=== PATIENT | female | born 1970 | race Caucasian/White ===

== ENCOUNTER 2016-09-21 23:48 | Emergency (ER) | payer OTHER ==
[~2016-09-21] VITALS: Ht 170.2 cm; Wt 103.7 kg
[~2016-09-21 23:48] MED LIST: ADDERALL XR 2020 MG PO; ADDERALL XR 3030 MG PO; CLONAZEPAM0.5 MG PO; DESYREL100 MG PO; FLUCONAZOLE150 MG PO; MOBIC7.5 MG PO; MOTRIN400 MG PO; TRAZODONE HCL100 MG PO; ULTRAM50 MG PO; ZOLPIDEM TARTRA10 MG PO
[2016-09-21 23:54] VITALS: BP 135/79
[2016-09-22] MEDS ORDERED: ULTRAM50 MG PO (02:13)
[2016-09-22] MEDS ORDERED: PERCOCET 5/31 TABLET PO (02:20)
== END 2016-09-22 02:34 | disposition home or self-care (01) ==
LOC: EME 23:48
DX: M77.31 Calcaneal spur, right foot (principal); M25.571 Pain in right ankle and joints of right foot; M79.89 Other specified soft tissue disorders
CPT/HCPCS: 73610; 73630; 93971; 99281; 99283

== ENCOUNTER 2018-01-05 05:24 | Inpatient (IN) | payer OTHER ==
[~2018-01-05] VITALS: Ht 172.7 cm; Wt 105.9 kg
[~2018-01-05 05:24] MED LIST changes: +PERCOCET 5/31 TABLET PO
[2018-01-05 06:28] LABS: HEMATOCRIT 34.5 % (36.0-46.0); HEMOGLOBIN 11.7 G/DL (11.9-15.5); MCH 29.3 PG (29.0-34.0); MCHC 33.9 G/DL (30.0-36.0); MCV 86.3 FL (83-99); PLATELET COUNT 216 K/uL (156-360); RBC DIS.WIDTH-CV 13.5 % (11.8-14.6); RBC DIS.WIDTH-SD 42.5 % (39-53); WHITE BLOOD COUNT 4.9 K/uL (4.1-10.2)
[2018-01-05 06:41] LABS: CHLORIDE 109 mEq/L (99-109); POTASSIUM 3.8 mEq/L (3.7-5.4); SODIUM 142 mEq/L (136-147)
[2018-01-05 06:43] LABS: GLUCOSE 116 mg/dL (70-99)
[2018-01-05 06:47] LABS: CREATININE 0.8 mg/dL (0.6-1.3); GFR ESTIMATE (CALCULATED) > 59 mL/min/; UREA NITROGEN (BUN) 12 mg/dL (9-23)
[2018-01-05 06:52] LABS: TROP-I INTERPRETATION NEGATIVE; TROPONIN-I 0.01 ng/mL (0.0-0.30)
[2018-01-05 07:13] LABS: ALBUMIN 4.2 G/DL (3.2-4.8); DIRECT BILIRUBIN 0.1 mg/dL (0.0-0.3); TOTAL BILIRUBIN 0.4 MG/DL (0.0-1.0)
[2018-01-05 07:18] LABS: ALKALINE PHOSPHATASE 75 IU/L (3-129); ALT (GPT) 12 IU/L (3-49); AST (GOT) 17 IU/L (2-34); LIPASE 15 U/L (1.0-51.0)
[2018-01-05 08:36] LABS: THYROTROPIN (TSH) 2.5 MIU/L (0.4-5.5)
[2018-01-05 08:40] LABS: TROP-I INTERPRETATION NEGATIVE; TROPONIN-I 0.04 ng/mL (0.0-0.30)
[2018-01-05] MEDS ORDERED: ADDERALL XR 3030 MG PO (09:22)
[2018-01-05] MEDS ORDERED: ALPRAZOLAM1 MG PO (09:23)
[2018-01-05 11:23] VITALS: BP 130/70
[2018-01-05 14:51] VITALS: BP 105/59
[2018-01-05 16:26] LABS: TROP-I INTERPRETATION POSITIVE; TROPONIN-I 1.04 ng/mL (0.0-0.30)
[2018-01-05 17:33] VITALS: BP 117/74
[2018-01-05 18:38] LABS: TROP-I INTERPRETATION POSITIVE; TROPONIN-I 1.97 ng/mL (0.0-0.30)
[2018-01-05 20:30] VITALS: BP 120/67
[2018-01-05 20:49] LABS: TROP-I INTERPRETATION POSITIVE; TROPONIN-I 2.55 ng/mL (0.0-0.30)
[2018-01-06 00:02] VITALS: BP 113/80
[2018-01-06 04:51] VITALS: BP 100/52
[2018-01-06 05:50] LABS: TROP-I INTERPRETATION POSITIVE; TROPONIN-I 4.12 ng/mL (0.0-0.30)
[2018-01-06 05:57] LABS: HEMATOCRIT 32.6 % (36.0-46.0); HEMOGLOBIN 10.6 G/DL (11.9-15.5); MCH 28.5 PG (29.0-34.0); MCHC 32.5 G/DL (30.0-36.0); MCV 87.6 FL (83-99); PLATELET COUNT 201 K/uL (156-360); RBC DIS.WIDTH-CV 13.5 % (11.8-14.6); RBC DIS.WIDTH-SD 43.3 % (39-53); RED BLOOD COUNT 3.72 M/uL (3.80-5.20); WHITE BLOOD COUNT 5.1 K/uL (4.1-10.2)
[2018-01-06 06:14] LABS: CHLORIDE 109 MEQ/L (99-109); CREATININE 0.6 MG/DL (0.6-1.3); GFR ESTIMATE (CALCULATED) > 59 mL/min/; GLUCOSE 99 mg/dL (70-99); POTASSIUM 3.7 MEQ/L (3.7-5.4); SODIUM 140 MEQ/L (136-147); UREA NITROGEN (BUN) 13 mg/dL (9-23)
[2018-01-06 07:51] VITALS: BP 97/52
[2018-01-06 12:12] VITALS: BP 98/51
[2018-01-06 22:20] VITALS: BP 100/51
[2018-01-07] VITALS: BP 108/51
[2018-01-07 05:22] LABS: BASOPHIL (%) 0.4 % (0-1); EOSINOPHIL (%) 0.8 % (0-5); HEMATOCRIT 31.3 % (36.0-46.0); HEMOGLOBIN 10.4 G/DL (11.9-15.5); IMMATURE GRANULOCYTE (%) 0.2 % (0.0-0.7); LYMPHOCYTE (%) 42.1 % (15-42); LYMPHOCYTE COUNT 2.2 K/uL (1.0-2.8); MCH 29.1 PG (29.0-34.0); MCHC 33.2 G/DL (30.0-36.0); MCV 87.7 FL (83-99); MONOCYTE (%) 7.6 % (3-12); MONOCYTE COUNT 0.4 K/uL (0-0.8); NEUTROPHIL (%) 48.9 % (45-76); NEUTROPHIL COUNT 2.5 K/uL (1.8-6.4); PLATELET COUNT 193 K/uL (156-360); RBC DIS.WIDTH-CV 13.6 % (11.8-14.6); RBC DIS.WIDTH-SD 43.9 % (39-53); RED BLOOD COUNT 3.57 M/uL (3.80-5.20); WHITE BLOOD COUNT 5.2 K/uL (4.1-10.2)
[2018-01-07 06:10] LABS: CHLORIDE 111 MEQ/L (99-109); CREATININE 0.7 MG/DL (0.6-1.3); GFR ESTIMATE (CALCULATED) > 59 mL/min/; GLUCOSE 92 mg/dL (70-99); POTASSIUM 3.8 MEQ/L (3.7-5.4); SODIUM 140 MEQ/L (136-147); UREA NITROGEN (BUN) 11 mg/dL (9-23)
[2018-01-07 07:26] VITALS: BP 89/44
[2018-01-07 11:00] VITALS: BP 95/54
[2018-01-07 15:20] VITALS: BP 105/51
[2018-01-07 19:48] VITALS: BP 103/56
[2018-01-07 23:06] VITALS: BP 97/55
[2018-01-08 05:29] VITALS: BP 98/54
[2018-01-08 07:25] VITALS: BP 95/51
[2018-01-08] MEDS ORDERED: NITROSTAT0.4 MG SL (10:59)
[2018-01-08] MEDS ORDERED: CLOPIDOGREL75 MG PO (10:59)
[2018-01-08] MEDS ORDERED: ATORVASTATIN CA80 MG PO (10:59)
[2018-01-08 11:00] VITALS: BP 118/61
[2018-01-08] MEDS ORDERED: ASPIRIN EC325 MG PO (11:00)
[2018-01-08] MEDS ORDERED: LOPRESSOR25 MG PO (11:00)
== END 2018-01-08 11:55 | disposition home or self-care (01) | DRG 247 ==
LOC: EME 05:24 → EDOF 08:08 → 4EAST 08:08 → 4SOUTH 08:08 → ENRESERV 08:18 → 4SOUTH 10:04 → 4EAST 16:44 → ENRESERV 16:48 → 4EAST 17:30
PROVIDERS: Emergency Medicine; Internal Medicine Cardiovascular Disease; Nurse Practitioner Family; Student in an Organized Health Care Education/Training Program
DX: I21.11 ST elevation (STEMI) myocardial infarction involving right coronary artery (principal); I25.10 Atherosclerotic heart disease of native coronary artery without angina pectoris; E78.5 Hyperlipidemia, unspecified; I10 Essential (primary) hypertension; E66.9 Obesity, unspecified; F31.9 Bipolar disorder, unspecified; F41.9 Anxiety disorder, unspecified; F90.9 Attention-deficit hyperactivity disorder, unspecified type; Z68.35 Body mass index [BMI] 35.0-35.9, adult; F17.210 Nicotine dependence, cigarettes, uncomplicated; Z82.49 Family history of ischemic heart disease and other diseases of the circulatory system
CPT/HCPCS: 71046; 80048; 80076; 83690; 84443; 84484; 85025; 85027; 85347; 85379; 85730; 93005; 99281; 99284; C1725; C1769; C1874; C1887; J0153; J0461; J1200; J1644; J2250; J2270; J2405; J3010; J3246; J7030